=== PATIENT | female | born 1970 | race Two or more races ===

== ENCOUNTER 2018-04-14 16:09 | Emergency (ER) | payer SELFPAY ==
[~2018-04-14] VITALS: Ht 162.6 cm; Wt 115.7 kg
[2018-04-14 16:30] VITALS: BP 139/83
--- NOTE | 2018-04-14 16:30 | NUR ---
ED Nurse Note: pt came in to ED from work c/o left arm pain 10/14 due to falling of 6 ft ladder. assessed arm. pt vss at the moment, pt ao x 4 , pt is self ambulatory with steady gait accompanied by
--- NOTE | 2018-04-14 16:50 | Emergency Room Report ---
History of Present Illness General Chief Complaint: Upper Extremity Injury Source: Patient Present Illness HPI 47-year-old female presenting with left elbow as well as left ankle pain. Says that she fell off a ladder about 6 feet. Did not hit her head did not lose consciousness. But did land on her side. No chest pain or abdominal pain. Has been able to ambulate on her ankle despite pain. Has not taken any medication Allergies: Coded Allergies: No Known Allergies (Unverified , 04/14/18) Patient History Past Medical History: see triage record Past Surgical History: none Pertinent Family History: none Last Menstrual Period: 03/24 Now: No Reviewed Nursing Documentation: PMH: Agreed; PSxH: Agreed Nursing Documentation-PMH Past Medical History: No History, Except For Hx Hypertension: Yes Hx Diabetes: Yes - Type 2 Review of Systems All Other Systems: negative except mentioned in HPI Physical Exam Vital Signs Date Time Temp Pulse Resp B/P (MAP) Pulse Ox O2 Delivery O2 Flow Rate FiO2 04/14/18 16:19 98.4 98 20 139/83 96 Room Air Sp02 EP Interpretation: reviewed, normal General Appearance: alert, GCS 15, non-toxic, mild distress Head: normocephalic, atraumatic Eyes: bilateral eye normal inspection, bilateral eye PERRL, bilateral eye EOMI ENT: normal ENT inspection, normal pharynx, normal voice, moist mucus membranes Neck: normal inspection, full range of motion, supple Respiratory: normal inspection, lungs clear, normal breath sounds, no respiratory distress, no retraction, no wheezing, speaking full sentences, chest symmetrical Cardiovascular #1: normal inspection, regular rate, rhythm, no edema, normal capillary refill Cardiovascular #2: 2+ radial (R), 2+ radial (L) Gastrointestinal: normal inspection, non tender, soft, non-distended, no guarding Musculoskeletal: other - Left elbow tenderness, slight swelling noted, patient able to straighten and bend elbow to 90 angle. No ecchymosis no obvious bony deformity, also palpation to the proximal forearm. Tenderness to the medial malleolus, able to dorsiflex and plantarflex the ankle. Able to bear weight as well no fifth metatarsal tenderness Neurologic: normal inspection, alert, oriented x3, responsive, motor strength/ tone normal, sensory intact, normal gait, speech normal Psychiatric: normal inspection, judgement/insight normal, memory normal Skin: normal inspection, normal color, no rash, warm/dry, well hydrated, normal turgor Medical Decision Making Diagnostic Impression: Primary Impression: Contusion of ankle, left Additional Impression: Contusion of arm, left ER Course 47-year-old female with left elbow and left ankle pain DDX: Sprain/strain vs. fracture Plan: Pain control with motrin XR ER course: Patient reports improvement of pain with motrin. XR reveals soft tissue swelling without fracture Disposition: Patient is to be discharged home with a prescription of motrin. Patient educated to rest, ice, and elevate extremity and to avoid vigorous activity. Strict precautions discussed with patient on when to return to the emergency room including increased redness or swelling joints, increased pain/swelling of extremity, fever or chills, which could indicate severe illness. Patient is to follow up with their primary care doctor within 5 days. Patient also instructed to follow up with an orthopedic doctor if continuing to have mild/moderate pain as he may need further outpatient imaging. Patient agrees with plan. Please note that this Emergency Department Report was dictated using [employer] clerk technology software, occasionally this can lead to erroneous entry secondary to interpretation by the dictation equipment. Xray ordered: Left elbow 3 view Indication: Pain EP Interpretation: Yes Interpretation: No dislocation, no soft tissue swelling, no fractures Impression: No acute disease Electronically signed by Chana Mills MD Xray: Left forearm 2 view Indication: Pain EP Interpretation: Yes Interpretation: No dislocation, no soft tissue swelling, no fractures Impression: No acute disease Electronically signed by Chana Mills MD Xray: Left ankle Complete Indication: Pain EP Interpretation: Yes Interpretation: No dislocation, no soft tissue swelling, no fractures Impression: No acute disease Electronically signed by Chana Mills MD Last Vital Signs Date Time Temp Pulse Resp B/P (MAP) Pulse Ox O2 Delivery O2 Flow Rate FiO2 04/14/18 16:19 98.4 98 20 139/83 96 Room Air Disposition: HOME, SELF-CARE Condition: Stable Scripts Ibuprofen* (MOTRIN*) 600 Mg Tablet 600 MG ORAL Q8H PRN for For Pain, #30 TAB 0 Refills Prov: Chana Mills M.D. 04/14/18 Chana Mills M.D. Apr 14, 2018 16:50
--- NOTE | 2018-04-14 16:56 | Diagnostic Imaging Report ---
Indication: Pain Findings: 3 views of the left elbow were obtained. No acute fractures, malalignment, erosions or periostitis are identified. Soft tissue swelling is present. Impression: No acute injury
--- NOTE | 2018-04-14 16:57 | Diagnostic Imaging Report ---
Indication: Pain Forearm pain Findings: 2 views of the left forearm were obtained. No acute fractures, malalignment, erosions or periostitis are identified. Bone mineralization is within normal limits. Soft tissues are unremarkable. Impression: Negative for acute injury.
[2018-04-14] MEDS ORDERED: IBUPROFEN600 MG ORAL (17:10)
[2018-04-14 17:21] VITALS: BP 139/83
--- NOTE | 2018-04-14 17:21 | NUR ---
ED Nurse Note: Pt is DC per MD order. pt has left with all belongings. pt as given dc and prescription intrusctions. patient verbalized understanding. pt is aox 4 pt vss and has been reported to MD. pt is able to abmulate with steady gait. ID band removed prior to Dc. accompanied with
== END 2018-04-14 22:20 | disposition home or self-care (01) ==
LOC: EMR 17:00
DX: S90.02XA Contusion of left ankle, initial encounter (principal); S50.02XA Contusion of left elbow, initial encounter; W11.XXXA Fall on and from ladder, initial encounter; Y92.89 Other specified places as the place of occurrence of the external cause; E11.9 Type 2 diabetes mellitus without complications; I10 Essential (primary) hypertension
CPT/HCPCS: 99284